=== PATIENT | male | born 1950 | race Caucasian/White ===

== ENCOUNTER 2016-11-15 05:49 | Day surgery (SDC) | payer MEDICAID ==
[2016-11-15] MEDS ORDERED: MIDAZOLAM 2 MG/2 ML VIAL ONE (07:45)
[2016-11-15] MEDS ORDERED: PROPOFOL/EMULSION 500 MG/50 ML BOTTLE IV ONE (07:47)
--- NOTE | 2016-11-15 08:29 | CPEKG ---
Heart Rate: 59 RR Interval: 1017 P-R Interval: 180 QRSD Interval: 132 QT Interval: 480 QTC Interval: 476 P Garnett: 12 QRS Garnett: -52 T Wave Garnett: -15 EKG Severity - ABNORMAL ECG - EKG Impression: SINUS RHYTHM EKG Impression: RBBB AND LAFB Electronically Signed By: Terrence Whitehead 15-Nov-2016 17:24:45
--- NOTE | 2016-11-15 09:16 | GPN ---
[f rep st] PROCEDURE NOTE PREPROCEDURE DIAGNOSIS: Need for screening colonoscopy. POSTPROCEDURE DIAGNOSIS: Three small colon polyps, removed. PROCEDURE: Colonoscopy with biopsy. MEDICATIONS: Monitored anesthesia care. INDICATIONS: Nick Shepherd is a 65-year-old gentleman with a history of chronic pain from orthopedic di sease and multiple knee and spine surgeries on Percocet, who presents for screening colonoscopy. The risks and benefits of the procedure were discussed with the patient and consent obtained. The risks include but not limited to, bleeding, perforation, risks related to sedation. The patient is ASA cl ass 3. DESCRIPTION OF PROCEDURE: The adult colonoscope was advanced to the terminal ileum which appeared no rmal. The appendiceal orifice, cecum, ileocecal valve appeared normal. There were 2 small polyps in the ascending colon, measuring 2 mm each which were both removed using cold biopsy forceps and sent off to pathology. The hepatic flexure, transverse colon, splenic flexure and descending colon were n ormal. There was scattered small diverticula throughout the sigmoid colon. The rectum showed a smal l 1 mm polyp which was removed with cold biopsy forceps and placed in a bottle and sent to pathology. Retroflexed views in the rectum were normal. IMPRESSION: 1. Three small colon polyps removed with cold biopsy forceps. 2. Diverticulosis in the left colon, mild. RECOMMENDATIONS: 1. Discharge to home with escort. 2. Resume previous medications. 3. High-fiber diet. 4. Repeat colonoscopy based on pathology. If 3 or more polyps are found to be adenomatous, repeat c olonoscopy in 3 years. If 1 or 2 polyps are adenomatous, repeat colonoscopy in 5 years. Otherwise, repeat colonoscopy in 10 years. 5. Follow up pathology results which will be available within 10 days. 6. Thank you very much for allowing me to assist in the care of your patient. Please do not hesitat e to call with questions. /[id number]/MODL
== END 2016-11-15 10:05 | disposition home or self-care (01) ==
LOC: FSGY 05:49
PROVIDERS: ATTEND Internal Medicine Gastroenterology
PROC: 0DBP8ZX Excision of Rectum, Via Natural or Artificial Opening Endoscopic, Diagnostic (ICD-10-PCS; 2016-11-15)
PROC: 0DBK8ZX Excision of Ascending Colon, Via Natural or Artificial Opening Endoscopic, Diagnostic (ICD-10-PCS; principal; 2016-11-15 07:45)
DX: Z12.11 Encounter for screening for malignant neoplasm of colon (principal); D12.6 Benign neoplasm of colon, unspecified; K62.1 Rectal polyp; G89.29 Other chronic pain; K57.30 Diverticulosis of large intestine without perforation or abscess without bleeding; Z87.891 Personal history of nicotine dependence; Z79.891 Long term (current) use of opiate analgesic; Z98.1 Arthrodesis status
CPT/HCPCS: J2250; J2704

== ENCOUNTER → 2016-12-15 | Outpatient (CLI) | payer OTHER | LOC: BHFA 08:45 | PROVIDERS: ATTEND Internal Medicine Cardiovascular Disease | DX: R94.31 Abnormal electrocardiogram [ECG] [EKG] (principal) ==

== ENCOUNTER → 2016-12-20 | Outpatient (CLI) | payer OTHER | LOC: BHFA 08:30 | PROVIDERS: ATTEND Internal Medicine Cardiovascular Disease | DX: R94.31 Abnormal electrocardiogram [ECG] [EKG] (principal) | CPT/HCPCS: 78452; 93017; A9500 ==

== ENCOUNTER 2017-01-09 09:51 | Day surgery (SDC) | payer OTHER ==
[2017-01-09] MEDS ORDERED: NS 1,000 ML IV ONE (09:57)
[2017-01-09] MEDS ORDERED: ASPIRIN EC 325 MG TAB PO ONE ×2 (09:57→10:15)
[2017-01-09] MEDS ORDERED: diphenhydrAMINE 25 MG CAP PO ONE ×2 (09:57→10:15)
[2017-01-09] MEDS ORDERED: DIAZEPAM 5 MG TAB PO ONE (09:57)
[2017-01-09] MEDS ORDERED: FAMOTIDINE 20 MG TAB PO ONE (09:57)
[2017-01-09] MEDS ORDERED: FAMOTIDINE 20 MG TAB ONE (10:15)
[2017-01-09] MEDS ORDERED: DIAZEPAM 5 MG TAB ONE (10:15)
--- NOTE | 2017-01-09 10:33 | CPEKG ---
Heart Rate: 64 RR Interval: 938 P-R Interval: 168 QRSD Interval: 128 QT Interval: 448 QTC Interval: 463 P Walters: 7 QRS Walters: -65 T Wave Walters: -12 EKG Severity - ABNORMAL ECG - EKG Impression: SINUS RHYTHM EKG Impression: RBBB AND LAFB Electronically Signed By: Shan Storey 10-Jan-2017 09:23:07
[2017-01-09 10:37] LABS: % IMMATURE GRANULYOCYTES 0.6 % (0.0-1.1); ABSOLUTE IMMATURE GRANULOCYTES 0.04 10^3/uL (0.00-0.10); ADD DIFF? NO; ADD MORPH? NO; ADD SCAN? NO; ATYPICAL LYMPHOCYTE FLAG 20 (0-99); FRAGMENT RBC FLAG 0 (0-99); HEMATOCRIT 47.6 % (40.0-51.0); LEFT SHIFT FLG 0 (0-99); LIPEMIA HEMOLYSIS FLAG 80 (0-99); MEAN CELL HEMOGLOBIN 29.3 pg (27.9-34.1); MEAN CELL HEMOGLOBIN CONCENTR. 33.6 g/dL (32.4-36.7); MEAN PLATELET VOLUME 11.1 fL (8.7-11.7); PLATELET CLUMPS FLAG 10 (0-99); PLATELET COUNT 184 10^3/uL (150-400); RED BLOOD CELL COUNT 5.47 10^6/uL (4.40-6.38); RED CELL DISTRIBUTION WIDTH 13.4 % (11.5-15.2)
[2017-01-09 10:44] LABS: INR 0.93 (0.83-1.16); PROTIME(PATIENT) 12.4 SEC (12.0-15.0)
[2017-01-09 10:48] LABS: ANION GAP 11 mEq/L (8-16); CALCIUM 9.7 mg/dL (8.5-10.4); CARBON DIOXIDE 21 mEq/l (22-31); CHLORIDE 110 mEq/L (97-110); CHOLESTEROL 223 mg/dL (140-220); CHOLESTEROL/HDL RATIO 4.85 RATIO (1.00-4.97); CREATININE 0.9 mg/dL (0.7-1.3); GLOMERULAR FILTRATION RATE > 60; GLUCOSE 91 mg/dL (70-100); HIGH DENSITY LIPOPROTEIN 46 mg/dL (40-65); LDL/HDL RATIO 3.35 RATIO (1.00-3.64); LOW DENSITY LIPOPROTEIN 154 mg/dL (80-100); NON-HIGH DENSITY LIPOPROTEIN 177 mg/dL (90-129); POTASSIUM 4.5 mEq/L (3.5-5.2); SODIUM 142 mEq/L (134-144); TRIGLYCERIDE 118 mg/dL (40-150); VERY LOW DENSITY LIPOPROTEINS 23 mg/dL (8-25)
[2017-01-09] MEDS ORDERED: fentaNYL 100 MCG/2 ML INJ ONE ×2 (13:03→13:53)
[2017-01-09] MEDS ORDERED: LIDOCAINE 1% 30 ML SDV ONE (13:03)
[2017-01-09] MEDS ORDERED: MIDAZOLAM 2 MG/2 ML VIAL ONE ×2 (13:03→13:53)
[2017-01-09] MEDS ORDERED: IOPAMIDOL (ISOVUE-300) 100 ML BTL IV ONE (13:04)
[2017-01-09] MEDS ORDERED: HEPARIN 10,000 UNIT/10 ML MDV ONE (13:04)
[2017-01-09] MEDS ORDERED: VERAPAMIL 5 MG/2 ML VIAL ONE (13:04)
--- NOTE | 2017-01-09 14:36 | PDDXCAT ---
Diagnostic Cath Note - . 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 LAD: Mild diffuse irregularities. LCX: Mild diffuse irregularities. RCA: Mild diffuse irregularities. LVEF: 65% Wall motion: Normal Estimated blood loss: <50ml Closure method: TR Band Assessment: 1) Normal LV systolic function. 2) Mild coronary atherosclerosis. Plan: Aggressive secondary prevention; current LDL is 154; will add atorvastatin 40 mg daily with a goal LDL of definitely less than 100 and preferably less than 70.
== END 2017-01-09 17:40 | disposition home or self-care (01) ==
LOC: FCATH 09:51
PROVIDERS: ATTEND Internal Medicine Interventional Cardiology
PROC: B2151ZZ Fluoroscopy of Left Heart using Low Osmolar Contrast (ICD-10-PCS; principal; 2017-01-09)
PROC: 4A023N7 Measurement of Cardiac Sampling and Pressure, Left Heart, Percutaneous Approach (ICD-10-PCS; principal; 2017-01-09)
PROC: B2111ZZ Fluoroscopy of Multiple Coronary Arteries using Low Osmolar Contrast (ICD-10-PCS; principal; 2017-01-09)
DX: R94.39 Abnormal result of other cardiovascular function study (principal); I25.10 Atherosclerotic heart disease of native coronary artery without angina pectoris; I45.10 Unspecified right bundle-branch block; I44.7 Left bundle-branch block, unspecified
CPT/HCPCS: 93005; 93458; C1769; J1644; J2250; J3010; Q9967